=== PATIENT | female | born 1985 | race Caucasian/White ===

== ENCOUNTER → 2020-04-06 | Outpatient (CLI) | payer OTHER ==
--- NOTE | 2020-05-02 00:03 | SLEEP ---
[address] [address] SLEEP STUDY REPORT Name: VIRGEN MCALLISTER Room: [facility] EliasBrittaMirandaBritta#: [id number] Admission: 04/06/20 Attend Phys: Dasha Santiago Discharge: Date of : 83 Report #: [id number] THIS REPORT FOR: cc: Anais Burgos Linda J. DO ~ Mohan Morfin MD This study has been reviewed in its entirety by a board certified sleep specialist DATE OF SERVICE: 04/06/2020 HOME SLEEP STUDY INTERPRETATION: Total duration of the study is 509 minutes. During this time duration, we recorded 20 obstructive apneas in addition to 26 hypopneas with an overall apnea-hypopnea index of 5.6. Body position data indicates the patient was in the supine position throughout the sleep study. There were also several desaturations recorded overall, however, the patient's O2 saturation is mostly maintained at or above 90%, was below 90% for 6.1 minutes, was below 88% for only 0.3 minutes. Mean heart rate was 76. IMPRESSION: Obstructive sleep apnea with an apnea-hypopnea index of 5.6. The patient is noted to be supine throughout the sleep study. O2 saturation is overall adequately maintained throughout the sleep study. RECOMMENDATIONS: I recommend considering therapy with a positive airway pressure device, the use of a CPAP auto titrated device or a repeat sleep study in the sleep lab for positive airway pressure titration are possible options. Clinical correlation is advised. In some selected patients, the use of a mandibular advancement device could also be considered. <ELECTRONICALLY SIGNED> By: Mohan Morfin MD 05/02/20 0003 [id number] Morfin MD /nt
== END ==
LOC: M.PUL 04-04 08:00
PROVIDERS: ATTEND Family Medicine
DX: G47.33 Obstructive sleep apnea (adult) (pediatric) (principal); R53.82 Chronic fatigue, unspecified; R06.83 Snoring; E66.01 Morbid (severe) obesity due to excess calories; M25.50 Pain in unspecified joint; M54.5 Low back pain; G89.29 Other chronic pain